=== PATIENT | male | born 1955 | race Hispanic/Latino ===

== ENCOUNTER 2016-10-31 21:02 | Inpatient (IN) | payer BC, OTHER ==
[2016-10-31 22:06] LABS: Basophils % (Auto) 0.8 % (0.0-1.8); Eosinophils % (Auto) 0.5 % (0.0-4.3); Hematocrit 46.9 % (35.5-45.6); Hemoglobin 15.7 gm/dl (11.8-15.2); Mean Corpuscular HGB Conc 33 % (32-34); Mean Corpuscular Hemoglobin 28 pg (28-32); Mean Corpuscular Volume 84 fl (84-94); Platelet Count 277 K/mm3 (140-440); Red Cell Distribution Width 13.4 % (13.2-15.2); White Blood Count 11.5 K/mm3 (4.5-11.0)
[2016-10-31 22:20] LABS: Anion Gap 18 mmol/L; Blood Urea Nitrogen 10 mg/dL (9-20); Calcium 9.7 mg/dL (8.4-10.2); Carbon Dioxide 26 mmol/L (22-30); Chloride 101.9 mmol/L (98-107); Glucose 103 mg/dL (75-100); Potassium 4.1 mmol/L (3.6-5.0); Sodium 142 mmol/L (137-145)
--- NOTE | 2016-11-01 06:31 | Emergency Department Report ---
ED General Adult HPI - General Chief complaint: Dyspnea/Respdistress Stated complaint: JOHN,LT JAW PAIN Time Seen by Provider: 11/01/16 06:16 Source: patient, RN notes reviewed Mode of arrival: Ambulatory Limitations: No Limitations - History of Present Illness Initial comments: This is a 61-year-old male. He is previously known to me. His primary care doctor is Dr. Weber. He reports a past medical history of COPD, but is not on home oxygen. He may have a history of hypertension. The patient presents to the ER complaining of chest pain. The chest pain started at 6 PM last night. It is sharp, located on the bilateral chest wall. It radiates to the left arm and back. It is associated with shortness of breath. The patient denies fevers and chills. He denies weakness production. He denies abdominal pain. He denies hematemesis or bright red blood per rectum. There is no leg pain. There is no leg swelling. No recent trips greater than 4 hours. No recent hospital admissions. The patient reports that he feels like he has pneumonia. He further reports that for the past 3 weeks he is on antibiotics for issues with his teeth. He reports multiple recent dental extractions( cannot recall the name of his dentist). He reports that he was initially on clindamycin, and then switched to Augmentin. He complains of persistent pain over the dental extraction sites. -: Gradual Location: mouth, chest Radiation: back Severity scale (0 -10): 7 Quality: aching Improves with: rest Worsens with: movement Associated Symptoms: chest pain - Related Data Home Medications Medication Instructions Recorded Confirmed Last Taken Amoxicillin [Amoxicillin TAB] 875 mg PO DAILY 11/01/16 11/01/16 10/31/16 Allergies Allergy/AdvReac Type Severity Reaction Status Date / Time clindamycin Allergy Rash Verified 10/31/16 21:26 ED Review of Systems ROS: Stated complaint: JOHN,LT JAW PAIN Other details as noted in HPI Constitutional: malaise Eyes: denies: vision change ENT: dental pain. denies: hearing loss Respiratory: shortness of breath Cardiovascular: chest pain Gastrointestinal: denies: abdominal pain, nausea, vomiting Genitourinary: as per HPI Musculoskeletal: as per HPI Skin: as per HPI Neurological: as per HPI Psychiatric: as per HPI ED Past Medical Hx - Past Medical History Previous Medical History?: No - Surgical History Additional Surgical History: R knee - Social History Smoking Status: Former Smoker Substance Use Type: None - Medications Home Medications: Home Medications Medication Instructions Recorded Confirmed Last Taken Type Amoxicillin [Amoxicillin TAB] 875 mg PO DAILY 11/01/16 11/01/16 10/31/16 History ED Physical Exam - General Limitations: No Limitations General appearance: alert, in no apparent distress - Head Head exam: Present: atraumatic, normocephalic - Eye Eye exam: Present: normal appearance, EOMI. Absent: nystagmus - ENT ENT exam: Present: normal exam, normal orophraynx, mucous membranes moist, normal external ear exam, other (status post multiple dental extractions. There is no stridor or trismus. There is no dysphonia. The patient is speaking in full sentences. There is no pain with lateral manipulation of the trachea.) - Neck Neck exam: Present: normal inspection, full ROM. Absent: tenderness, meningismus - Respiratory Respiratory exam: Present: normal lung sounds bilaterally. Absent: respiratory distress, wheezes, rales, rhonchi, stridor, chest wall tenderness, accessory muscle use, decreased breath sounds, prolonged expiratory - Cardiovascular Cardiovascular Exam: Present: regular rate, normal rhythm, normal heart sounds. Absent: bradycardia, tachycardia, irregular rhythm, systolic murmur, diastolic murmur, rubs, gallop - GI/Abdominal GI/Abdominal exam: Present: soft, normal bowel sounds. Absent: distended, tenderness, guarding, rebound, rigid, pulsatile mass - Rectal Rectal exam: Present: deferred - Extremities Exam Extremities exam: Present: normal inspection, full ROM, normal capillary refill. Absent: pedal edema, joint swelling, calf tenderness - Back Exam Back exam: Present: normal inspection, full ROM. Absent: tenderness, CVA tenderness (R), CVA tenderness (L), muscle spasm, paraspinal tenderness, vertebral tenderness - Neurological Exam Neurological exam: Present: alert, oriented X3, normal gait, other (Extraocular movements intact. Tongue midline. No facial droop. Facial sensation intact to light touch in the V1, V2, V3 distribution bilaterally. 5 and 5 strength in 4 extremities.. Sensation is intact to light touch in 4 extremities.). Absent : motor sensory deficit - Psychiatric Psychiatric exam: Present: normal affect, normal mood - Skin Skin exam: Present: warm, dry, intact, normal color. Absent: rash ED Course Vital Signs 10/31/16 11/01/16 11/01/16 21:22 03:05 04:40 Temperature 99.1 F Pulse Rate 86 71 74 Respiratory 22 20 17 Rate Blood Pressure 172/89 148/87 Blood Pressure 183/93 [Left] O2 Sat by Pulse 98 96 98 Oximetry 11/01/16 11/01/16 11/01/16 06:51 08:51 08:55 Temperature Pulse Rate 80 86 86 Respiratory 16 13 Rate Blood Pressure 175/95 Blood Pressure 176/83 [Left] O2 Sat by Pulse 96 96 Oximetry 11/01/16 11/01/16 11/01/16 09:01 09:05 09:11 Temperature Pulse Rate 89 88 85 Respiratory 14 14 15 Rate Blood Pressure 159/80 159/80 159/80 Blood Pressure [Left] O2 Sat by Pulse 94 94 96 Oximetry 11/01/16 11/01/16 11/01/16 09:54 10:00 11:00 Temperature Pulse Rate 91 H 79 82 Respiratory 14 17 16 Rate Blood Pressure 165/87 136/70 160/76 Blood Pressure [Left] O2 Sat by Pulse 93 94 92 Oximetry 11/01/16 11/01/16 11/01/16 12:00 13:00 14:00 Temperature Pulse Rate 80 82 79 Respiratory 23 16 16 Rate Blood Pressure 147/85 134/77 117/68 Blood Pressure [Left] O2 Sat by Pulse 92 95 95 Oximetry - Reevaluation(s) Reevaluation #1: 11/01/16 07:51 differential diagnosis: Costochondritis, pneumonia, acute coronary syndrome, pleural effusion, empyema, pulmonary embolus, pericarditis, myocarditis, chronic dentalgia Assessment and plan: 61-year-old male with 2 complaints. In terms of his dental complaints, he's been having pain since his extraction. Surgical site appears to be healing well. There is no obvious intraoral abscess or infection that I can detect. He can follow up with his dentist for this. Patient has not had a recent ACS risk stratification, age or than 50, some concerning elements of chest pain. He reported that he felt like he had pneumonia, however his x-ray was not consistent with pneumonia. We will obtain a CT scan of the chest to exclude small pneumonia versus pulmonary embolus. EKG morphological within normal limits 2. Troponin negative at this time. Reevaluation #2: 11/01/16 08:45 CT scan of the chest is nondiagnostic, there are no large central clot, but the distal vessels are not well evaluated. A nuclear medicine study will be ordered. Given clinical M Skylar, multiple symptoms, patient will be admitted to the hospital for further evaluation and management. L will defer to the inpatient team to follow up on a nuclear medicine study. The case is presented to the nurse practitioner working with Dr. John Matthew, and she accepts the patient to his service. ED Medical Decision Making - Lab Data Result diagrams: 10/31/16 21:49 10/31/16 21:49 Vital Signs 10/31/16 11/01/16 11/01/16 21:22 03:05 04:40 Temperature 99.1 F Pulse Rate 86 71 74 Respiratory 22 20 17 Rate Blood Pressure 172/89 148/87 Blood Pressure 183/93 [Left] O2 Sat by Pulse 98 96 98 Oximetry 11/01/16 06:51 Temperature Pulse Rate 80 Respiratory 16 Rate Blood Pressure Blood Pressure 176/83 [Left] O2 Sat by Pulse 96 Oximetry Lab Results 10/31/16 10/31/16 11/01/16 Range/Units 21:49 21:49 06:44 WBC 11.5 H (4.5-11.0) K/mm3 RBC 5.60 H (3.65-5.03) M/mm3 Hgb 15.7 H (11.8-15.2) gm/dl Hct 46.9 H (35.5-45.6) % MCV 84 (84-94) fl MCH 28 (28-32) pg MCHC 33 (32-34) % RDW 13.4 (13.2-15.2) % Plt Count 277 (140-440) K/mm3 Lymph % (Auto) 19.1 (13.4-35.0) % [place] % (Auto) 8.7 H (0.0-7.3) % Eos % (Auto) 0.5 (0.0-4.3) % Baso % (Auto) 0.8 (0.0-1.8) % Lymph # 2.2 (1.2-5.4) K/mm3 [place] # 1.0 H (0.0-0.8) K/mm3 Eos # 0.1 (0.0-0.4) K/mm3 Baso # 0.1 (0.0-0.1) K/mm3 Seg Neutrophils % 70.9 H (40.0-70.0) % Seg Neutrophils # 8.2 H (1.8-7.7) K/mm3 PT 13.8 (12.2-14.9) Sec. INR 1.07 (0.87-1.13) Sodium 142 (137-145) mmol/L Potassium 4.1 (3.6-5.0) mmol/L Chloride 101.9 (98-107) mmol/L Carbon Dioxide 26 (22-30) mmol/L Anion Gap 18 mmol/L BUN 10 (9-20) mg/dL Creatinine 0.8 (0.8-1.5) mg/dL Estimated GFR > 60 ml/min BUN/Creatinine Ratio 12.50 % Glucose 103 H (75-100) mg/dL Calcium 9.7 (8.4-10.2) mg/dL Troponin T < 0.010 (0.00-0.029) ng/mL 11/01/16 Range/Units 06:44 WBC (4.5-11.0) K/mm3 RBC (3.65-5.03) M/mm3 Hgb (11.8-15.2) gm/dl Hct (35.5-45.6) % MCV (84-94) fl MCH (28-32) pg MCHC (32-34) % RDW (13.2-15.2) % Plt Count (140-440) K/mm3 Lymph % (Auto) (13.4-35.0) % [place] % (Auto) (0.0-7.3) % Eos % (Auto) (0.0-4.3) % Baso % (Auto) (0.0-1.8) % Lymph # (1.2-5.4) K/mm3 [place] # (0.0-0.8) K/mm3 Eos # (0.0-0.4) K/mm3 Baso # (0.0-0.1) K/mm3 Seg Neutrophils % (40.0-70.0) % Seg Neutrophils # (1.8-7.7) K/mm3 PT (12.2-14.9) Sec. INR (0.87-1.13) Sodium (137-145) mmol/L Potassium (3.6-5.0) mmol/L Chloride (98-107) mmol/L Carbon Dioxide (22-30) mmol/L Anion Gap mmol/L BUN (9-20) mg/dL Creatinine (0.8-1.5) mg/dL Estimated GFR ml/min BUN/Creatinine Ratio % Glucose (75-100) mg/dL Calcium (8.4-10.2) mg/dL Troponin T < 0.010 (0.00-0.029) ng/mL - EKG Data -: EKG Interpreted by Me EKG shows normal: sinus rhythm, axis, intervals, QRS complexes, ST-T waves Rate: normal Critical care attestation.: If time is entered above; I have spent that time in minutes in the direct care of this critically ill patient, excluding procedure time. ED Disposition Clinical Impression: Chest pain Disposition: OP ADMIT IP TO THIS HOSP Is pt being admited?: Yes Does the pt Need Aspirin: Yes Condition: Good
--- NOTE | 2016-11-01 07:02 | XRay Report ---
FINAL REPORT EXAM: XR CHEST ROUTINE 2V HISTORY: Shortness of breath TECHNIQUE: Chest, PA and lateral PRIORS: None. FINDINGS: The heart size is normal. Mediastinal contours are normal. Pulmonary vasculature is not congested. The lungs are clear. Slight blunting of the right costophrenic angle seen which may reflect minimal pleural fluid versus pleural thickening. There is no evidence of pneumothorax. IMPRESSION: Slight blunting of right costophrenic angle seen which could reflect some pleural thickening although minimal pleural fluid not excluded. No other evidence of acute abnormality.
[2016-11-01 07:09] LABS: INR 1.07 (0.87-1.13)
[2016-11-01] MEDS ORDERED: NACL ONE (07:14)
[2016-11-01] MEDS ORDERED: BABY ASPIRIN PO ONE (08:46)
--- NOTE | 2016-11-01 08:55 | Cat Scan Report ---
CTA CHEST INDICATION: Chest pain, shortness of breath. COPD. COMPARISON: None similar. FINDINGS: Chest CTA performed following intravenous administration of 100 cc of Omnipaque 350. Rotational MIP's also obtained. Normal heart size. No effusions or size significant adenopathy. Patent central airway. Old healed granulomatous disease with few right hilar calcifications measuring up to 1.2 cm noted. Few coronary and mild aortic atherosclerotic calcifications. No aortic aneurysm or dissection. Pulmonary arterial opacification though technically suboptimal. No large central main or right and left pulmonary artery branch filling defect though suspected with further distal branch opacification evaluation suboptimal. Normal thyroid. Mild COPD changes most evident in the upper lobes. Bibasilar scarring, right greater than left. A 7 mm right lung base calcified granuloma posteriorly also noted. No acute abnormality in the imaged upper abdomen, though an approximately 1.2 cm hypodensity just medial to the IVC may lie in the caudate lobe as on axial image 112, series 3, possibly a cyst. Nonspecific caudate lobe prominence as well. Few small rodolfo hepatis lymph nodes measure up to 1.2 cm, axial image 127 as well. Questionable tiny recannulized paraumbilical vein. Approximately 1 cm left upper renal cortical hypodensity/cyst medially may be partially imaged. Mild multilevel thoracic spine degenerative changes/spurring. CONCLUSION: 1. Technically suboptimal exam for pulmonary embolism, though no definite large central filling defect suspected, to the extent assessed, as described. 2. Various other findings, including COPD, old healed granulomatous disease, right basilar scarring and questionable subtle cirrhosis, amongst others, as above. Please correlate. Thank you for the opportunity to participate in this patient's care.
--- NOTE | 2016-11-01 09:09 | Admit Criteria Form ---
Admission Criteria Documentation: CARDIOLOGY GRG Clinical Indications for Admission to Inpatient Care ( Place 'X' for any and all applicable criteria): Hospital admission is needed for appropriate care of the patient because of ANY ONE of the following (1): [ ] I. Hemodynamic instability as indicated by ALL of the following (1)(2)(3) (4)(5) [ ]a) Vital signs or other findings not as expected for chronic patient condition or baseline [ ]b) Instability indicated by ANY ONE of the following: [ ]i) Hypotension [ ]ii) Symptomatic Tachycardia unresponsive to treatment ( e.g., analgesia, fluids, sedation as indicated) [ ]iii) Inadequate perfusion indicated by ANY ONE of the following: [ ] 1) Lactic acidosis (> 2 mmol/L) [ ] 2) New abnormal capillary refill (> 3 seconds) [ ] 3) Reduced urine output [ ] 4) New altered mental status [ ]iv) Orthostatic vital sign changes unresponsive to treatment (e.g., fluids) [ ]v) IV inotropic or vasopressor medication required to maintain adequate blood pressure or perfusion [ ] II. Severe heart failure as indicated by ANY ONE of the following(17)(18) [ ]a) Respiratory distress [ ]b) Hypotension [ ]c) Anasarca (refractory to outpatient therapy) [ ]d) Cardiac arrhythmias of immediate concern [ ]e) Myocardial ischemia [ ] III. Cardiac arrhythmias or findings of immediate concern indicated by ANY ONE of the following (19)(20): [ ] a) Heart rhythms that are inherently dangerous or unstable indicated by ANY ONE of the following (21)(22)(23): [ ] i) Resuscitated ventricular fibrillation or cardiac arrest [ ] ii) Ventricular escape rhythm [ ] iii) Sustained ventricular tachycardia (30 seconds or more of ventricular rhythm at greater than 100 beats per minute) [ ] iv) Nonsustained ventricular tachycardia and ANY ONE of the following: [ ] 1) Suspected cardiac ischemia as cause or consequence of ventricular tachycardia [ ] 2) In setting of acute myocarditis [ ] b) Unstable cardiac conduction defects indicated by ANY ONE of the following(23)(24)(25) [ ] i) Type II second-degree atrioventricular block [ ]ii) Third-degree atrioventricular block [ ]iii) New-onset left bundle branch block with suspected myocardial ischemia [ ]c) Any heart rhythm and ANY ONE of the following (21)(22)(26)(27) (28) [ ] i) Continuous long-term ECG monitoring needed (e.g., initiation of drug requiring monitoring for more than 24 hours) [ ] ii) Patient has automatic implanted cardioverter defibrillator that is repeatedly firing, malfunctioning, or in need of immediate adjustment of settings beyond the scope of ambulatory or observation care [ ]d) Heart rhythms of concern due to ANY ONE of the following: [ ] i) Hypotension [ ] ii) Respiratory distress [ ] iii) Association with other significant symptoms (e.g., bradycardia with syncope or ongoing dizziness, supraventricular tachycardia with chest pain (14)(15)(17) [ ] IV. Monitoring for cardiac contusion beyond the scope of observation care needed [A](30)(31)(32) [ ] V. Surgical or device complication (e.g., valve replacement complication , pacemaker dysfunction) (35)(41)(44)(45)(46) [ ] . Inpatient palliative care needed. [B](49) Also use Inpatient Palliative Care Criteria [ ] VII. Nonbacterial thrombotic (marantic) endocarditis (36)(43)(47)(48) [X] VIII. Cardiology condition, symptom, or finding for which emergency and observation care has failed or are not considered appropriate. [ ] IX. Acute valvular disease requiring inpatient as indicated by ANY ONE of the following (41) [ ]a) Acute valvular regurgitation (42) [ ]b) Noninfectious valvulitis (43) [ ]c) Obstructive valve thrombosis [ ]d) Paravalvular leak [ ]e) Other significant valvular disorder remaining after emergency or observation level of care (as appropriate) [ ]X. Pericardial disease requiring inpatient treatment as indicated by ANY ONE of the following (33)(34)(35)(36)(37) [ ]a) Suspected tamponade (38)(39)(40) [ ]b) Hemopericardium [ ]c) Other significant pericardial disorder remaining after emergency or observation level of care (as appropriate) [ ] XI. Cardiac ischemia beyond scope of emergency and observation care. [ ] XII. Hypertension requiring inpatient treatment as indicated by ANY ONE of the following (6)(7)(8) [ ]a) SBP greater than 220 mm Hg or DBP greater than 120 mmHg despite treatment [ ]b) SBP greater than 140 mm Hg or DBP greater than 100 mm Hg with evidence of acute end organ damage as indicated by ANY ONE of the following [ ] i) Altered mental status [ ] ii) Acute renal failure as indicated by new onset of ANY ONE of the following (9)(10)(11)(12)(13) [ ]1) 3-fold rise in serum creatinine from baseline [ ]2) Serum creatinine greater than 4 mg/dL ( 354 micromoles/L) with acute rise greater than 0.5 mg/dL (44.2 micromoles/L) [ ]3) Reduction of more than 75% in estimated glomerular filtration rate from baseline [ ]4) Estimated glomerular filtration rate less than 35 mL/min/1.73m2 (0.59 mL/sec/1.73m2) in child up to 18 years of age [ ]5) Cessation of urine output indicated by ALL of the following [ ]A. Adequate volume status [ ]B. Inadequate urine output as indicated by ANY ONE of the following [ ]a. Urine output less than 0.3 mL/kg/hr for 24 hours [ ]b. Anuria (urine output less than 0.1 mL/kg/hr) for 12 hours [ ] iii) Aortic dissection [ ] iv) Myocardial Ischemia [ ] v) Left ventricular heart failure [ ]vi) Retinal Hemorrhage [ ]vii) Other significant finding [ ]c) Hypertension in child requiring inpatient treatment as indicated by ALL of the following(14)(15)(16) [ ] i) Outpatient treatment not effective, not available, or not appropriate [ ]ii) SBP or DBP greater than 95th percentile for age [ ]iii) Evidence of acute end organ damage as indicated by ANY ONE of the following [ ]1) Altered mental status [ ]2) Acute renal failure as indicated by new onset of ANY ONE of the following(9)(10)(11)(12)(13) [ ]A. 3-fold rise in serum creatinine from baseline [ ]B. Serum creatinine greater than 4 mg/dL (354 micromoles/L) with acute rise greater than 0.5 mg/dL (44.2 micromoles/L) [ ]C. Reduction of more than 75% in estimated glomerular filtration rate from baseline [ ]D. Estimated glomerular filtration rate less than 35 mL/min/1.73m2 (0.59 mL/sec/1.73m2) in child up to 18 years of age [ ]E. Cessation of urine output indicated by ALL of the following [ ]a. Adequate volume status [ ]b. Inadequate urine output as indicated by ANY ONE of the following [ ]i) Urine output less than 0.3 mL/kg/hr for 24 hours [ ]ii) Anuria ( urine output less than 0.1 mL/kg/hr) for 12 hours [ ]3) Severe headache [ ]4) Visual disturbance [ ]5) Retinal hemorrhage [ ]6) Other significant finding [ ]XIII. Complications of transplanted heart indicated by ANY ONE of the following(61): [ ]a) Acute graft rejection requiring inpatient management (eg, intravenous immunosuppression)(62)(63) [ ]b) Acute graft heart failure indicated by ANY ONE of the following(64): [ ]i) Hemodynamic instability [ ]ii) Cardiac arrhythmias of immediate concern [ ]iii) Pulmonary edema that is very severe (eg, mechanical ventilation needed, imminent or likely, need for 100% oxygen to keep oxygen saturation above 90%) [ ]iv) Pulmonary edema that is persistent as indicated by ALL of the following: [ ]1) New need for oxygen therapy to keep oxygen saturation above 90% (or increased FiO2 need from baseline) [ ]2) Has not improved sufficiently with emergency department or observation care IV diuretics or other heart failure treatments[E] [ ]v) Altered mental status that is severe or persistent [ ]vi) Increased creatinine (new on laboratory test) with reduction of more than 50% in estimated glomerular filtration rate from baseline [ ]vii) Progressively (ongoing) rising creatinine (known from past laboratory test) with reduction of more than 25% in estimated glomerular filtration rate from baseline [ ]viii) Acute renal failure [ ]ix) Acute peripheral ischemia (eg, examination shows pulseless, cool, mottled, or cyanotic extremity) [ ]x) Pulmonary artery catheter monitoring needed [ ]xi) Other sign or symptom of heart failure requiring inpatient treatment (ie, too severe or not responsive to outpatient and observation care treatment) [ ]c) Infection requiring inpatient management (eg, Hemodynamic instability, need for intravenous antimicrobial treatment)(66)(67)(68)(69)(70) [ ]d) Cardiac allograft vasculopathy requiring inpatient management ( eg evidence of cardiac ischemia)(71) [ ]e) Other complication of transplanted heart (eg, stroke, severe pulmonary hypertension, severe valvular dysfunction) requiring inpatient management(72) The original [facility] [employer] content created by [facility] has been revised. The portions of the content which have been revised are identified through the use of italic text or in bold, and [facility] has neither reviewed nor approved the modified material. All other unmodified content is copyright [facility] [employer]. Please see references footnoted in the original [facility] [employer] edition 2016 Admission Criteria Met: Yes
[2016-11-01] MEDS ORDERED: TYLENOL PO PRN (09:36)
[2016-11-01] MEDS ORDERED: MORPHINE IV PRN (09:36)
[2016-11-01] MEDS ORDERED: ZOFRAN IV PRN (09:36)
[2016-11-01] MEDS ORDERED: MILK OF MAGNESIA PO PRN (09:36)
[2016-11-01] MEDS ORDERED: DULCOLAX PR PRN (09:36)
[2016-11-01] MEDS ORDERED: NITROSTAT SL PRN (09:42)
[2016-11-01] MEDS ORDERED: SODIUM CHLORIDE FLUSH SYRINGE 10 ML IV PRN (09:42)
--- NOTE | 2016-11-01 09:51 | History and Physical Report ---
History of Present Illness Date of examination: 11/01/16 Date of admission: 11/01/2016 Chief complaint: chest pain, shortness of breath History of present illness: Patient is a 61 years-old gentleman with a history of COPD and hypertension who presents with complaining of chest pain. He states that the pain began last night and consisted of a sharp pain that lasted around 30 seconds, followed by a dull pain that would last around 2 minutes. The pain was located over bilateral anterior chest wall. The character pain began in the Midsternal area and radiated up to his back. His discomfort was accompanied by shortness of breath, but associated symptoms no sweating, nausea, or vomiting. The chest pain was aggravated by coughing and taking deep breaths.He says that coughing and breathing makes it worst and hot temperatures will help relieve those symptoms. The pain has been a constant pain since it started yesterday evening. At first, he felt a sharp pain that was 7/10 but eventually it became more dull pain and is currently 5/10.He has had no fevers, chills, or night sweats. He has no allergies, seasonal or otherwise, other than hx of COPD. He reports feeling like he is wheezing, but no dyspnea at rest (as long as he is lying down ), no orthopnea, and no paroxysmal nocturnal dyspnea. No hx of recurrent pneumonia. He has no sick contact, TB exposure has not traveled recently or been around those who have. He has about a 32 pack year history with tobacco and stopped smoking five years ago. Patient also stated that for the past 3 weeks he is on clindamycin and Augmentin for infected tooth. Patient believed that he has pneumonia because he has the same symptoms that he had 3 years ago when he was diagnosed with pneumonia. Past History Past Medical History: COPD, hypertension Past Surgical History: No surgical history Social history: no significant social history, , lives with family Family history: CAD Medications and Allergies Allergies Allergy/AdvReac Type Severity Reaction Status Date / Time clindamycin Allergy Rash Verified 10/31/16 21:26 Home Medications Medication Instructions Recorded Confirmed Last Taken Type Amoxicillin [Amoxicillin TAB] 875 mg PO DAILY 11/01/16 11/01/16 10/31/16 History Budesoni/Formoterol 80-4.5(Nf) 1 puff IH BID 11/01/16 11/01/16 1 Day Ago History [Symbicort 80-4.5 (Nf)] Active Meds: Active Medications Acetaminophen (Tylenol) 650 mg PO Q4H PRN PRN Reason: Pain MILD(1-3)/Fever >100.5/BOYKIN Aspirin (Aspirin) 325 mg PO QDAY GEOVANI Bisacodyl (Dulcolax) 10 mg SD QDAY PRN PRN Reason: Constipation unrelieved by MOM Dextrose/Sodium Chloride (D5ns) 1,000 mls @ 75 mls/hr IV DIRECT GEOVANI Magnesium Hydroxide (Milk Of Magnesia) 30 ml PO Q4H PRN PRN Reason: Constipation Morphine Sulfate (Morphine) 2 mg IV Q4H PRN PRN Reason: Pain, Moderate (4-6) Nitroglycerin (Nitrostat) 0.4 mg SL Q5M PRN PRN Reason: Chest Pain Ondansetron HCl (Zofran) 4 mg IV Q8H PRN PRN Reason: N/V unrelieved by Reglan Sodium Chloride (Sodium Chloride Flush Syringe 10 Ml) 10 ml IV PRN PRN PRN Reason: LINE FLUSH Review of Systems Constitutional: no weight loss, no weight gain, no fever, no chills Ears, nose, mouth and throat: no ear pain, no ear discharge, no tinnitis Cardiovascular: chest pain, shortness of breath, no orthopnea, no dyspnea on exertion, no paroxysmal nocturnal dyspnea Respiratory: cough, shortness of breath, congestion Gastrointestinal: no abdominal pain, no nausea, no vomiting Genitourinary Male: no dysuria, no hematuria Musculoskeletal: no neck stiffness, no neck pain, no shooting arm pain Integumentary: no deferred, no rash, no pruritis, no redness, no sores Neurological: no head injury, no transient paralysis, no paralysis Psychiatric: no anxiety, no memory loss, no change in sleep habits Endocrine: no cold intolerance, no heat intolerance, no polyphagia, no excessive thirst Hematologic/Lymphatic: no easy bruising, no easy bleeding Allergic/Immunologic: no urticaria, no allergic rhinitis Exam - Constitutional Vitals: Temp Pulse Resp BP Pulse Ox 99.1 F 85 15 159/80 96 10/31/16 21:22 11/01/16 09:11 11/01/16 09:11 11/01/16 09:11 11/01/16 09:11 General appearance: Present: mild distress - EENT Eyes: Present: PERRL, EOM intact ENT: hearing intact, clear oral mucosa, dentition normal - Neck Neck: Present: supple, normal ROM - Respiratory Respiratory effort: normal Respiratory: bilateral: diminished, rales - Cardiovascular Heart rate: 79 Rhythm: regular Heart Sounds: Present: S1 & S2. Absent: rub, click - Extremities Extremities: pulses symmetrical, No edema Peripheral Pulses: within normal limits - Abdominal General gastrointestinal: Present: soft, non-tender Male genitourinary: Present: deferred - Rectal Rectal Exam: deferred - Integumentary Integumentary: Present: clear, warm, dry - Musculoskeletal Musculoskeletal: gait normal, strength equal bilaterally - Psychiatric Psychiatric: appropriate mood/affect, intact judgment & insight - Neurologic Neurologic: CNII-XII intact, moves all extremities Results - Labs CBC & Chem 7: 10/31/16 21:49 10/31/16 21:49 Labs: Laboratory Last Values WBC 11.5 K/mm3 (4.5-11.0) H 10/31/16 21:49 RBC 5.60 M/mm3 (3.65-5.03) H 10/31/16 21:49 Hgb 15.7 gm/dl (11.8-15.2) H 10/31/16 21:49 Hct 46.9 % (35.5-45.6) H 10/31/16 21:49 MCV 84 fl (84-94) 10/31/16 21:49 MCH 28 pg (28-32) 10/31/16 21:49 MCHC 33 % (32-34) 10/31/16 21:49 RDW 13.4 % (13.2-15.2) 10/31/16 21:49 Plt Count 277 K/mm3 (140-440) 10/31/16 21:49 Lymph % (Auto) 19.1 % (13.4-35.0) 10/31/16 21:49 [place]ila % (Auto) 8.7 % (0.0-7.3) H 10/31/16 21:49 Eos % (Auto) 0.5 % (0.0-4.3) 10/31/16 21:49 Baso % (Auto) 0.8 % (0.0-1.8) 10/31/16 21:49 Lymph # 2.2 K/mm3 (1.2-5.4) 10/31/16 21:49 [place]ila # 1.0 K/mm3 (0.0-0.8) H 10/31/16 21:49 Eos # 0.1 K/mm3 (0.0-0.4) 10/31/16 21:49 Baso # 0.1 K/mm3 (0.0-0.1) 10/31/16 21:49 Seg Neutrophils % 70.9 % (40.0-70.0) H 10/31/16 21:49 Seg Neutrophils # 8.2 K/mm3 (1.8-7.7) H 10/31/16 21:49 PT 13.8 Sec. (12.2-14.9) 11/01/16 06:44 INR 1.07 (0.87-1.13) 11/01/16 06:44 Sodium 142 mmol/L (137-145) 10/31/16 21:49 Potassium 4.1 mmol/L (3.6-5.0) 10/31/16 21:49 Chloride 101.9 mmol/L (98-107) 10/31/16 21:49 Carbon Dioxide 26 mmol/L (22-30) 10/31/16 21:49 Anion Gap 18 mmol/L 10/31/16 21:49 BUN 10 mg/dL (9-20) 10/31/16 21:49 Creatinine 0.8 mg/dL (0.8-1.5) 10/31/16 21:49 Estimated GFR > 60 ml/min 10/31/16 21:49 BUN/Creatinine Ratio 12.50 % 10/31/16 21:49 Glucose 103 mg/dL (75-100) H 10/31/16 21:49 Calcium 9.7 mg/dL (8.4-10.2) 10/31/16 21:49 Troponin T < 0.010 ng/mL (0.00-0.029) 11/01/16 06:44 Assessment and Plan - Patient Problems (1) Chest pain Current Visit: Yes Status: Acute Qualifiers: Chest pain type: C Ischemic chest pain type: I Plan to address problem: Patient will admit to Telemetry for continuous cardiac monitoring We will do serial cardiac enzymes and follow cardiac enzymes troponin Echocardiogram and a stress test ordered Cardiology consulted for further evaluation (2) PNA (pneumonia) Current Visit: Yes Status: Acute Qualifiers: Pneumonia type: P Aspiration pneumonia type: A Laterality: L Lung location: L Plan to address problem: Patient had blood cultures drawn as he was started on Levaquin We will initiate empiric treatment antibiotic We will repeat the CBC Repeat chest x-ray (3) COPD exacerbation Current Visit: Yes Status: Acute Plan to address problem: We initiate IV steroids Solu-Medrol 40 mg every 6 hours Duoneb Q6hrs ordered Oxygen as needed (4) Venous thromboembolism (VTE) prophylaxis provided within 24 hours of arrival Current Visit: Yes Status: Acute Plan to address problem: Lovenox
[2016-11-01] MEDS: ASPIRIN PO SCH (11:33)
--- NOTE | 2016-11-01 11:33 | Nuclear Medicine Report ---
VENTILATION PERFUSION SCAN INDICATION: Shortness of breath, chest pain. COMPARISON: None similar. FINDINGS: VQ scan performed in anterior, posterior, lateral and oblique projections. 5 mCi of technetium 99m MAA was used for the perfusion assessment while 15 millicuries of Xenon 133 was utilized for the ventilation portion of the study. Ventilation images demonstrate radiotracer retention within the lungs, left more than right. The perfusion is more heterogeneous than the ventilation with large areas of hypoperfusion/non-perfusion in the mid lung zones, though not strictly lobar. Available chest radiograph from 9:36 PM last night demonstrates no acute disease with right basilar scarring. CONCLUSION: Intermediate probability exam per PIOPED criteria in this patient with underlying COPD/air trapping noted with heterogeneous perfusion, as described. An interval PE protocol CT technically suboptimal, though no large central pulmonary embolism suspected with above V/Q appearance somewhat discrepant and possibly related to parenchymal disease. However, repeat chest CTA may provide better pulmonary arterial opacification and assessment, if warranted and renal function allows. Thank you for the opportunity to participate in this patient's care.
[2016-11-01 14:39] LABS: Creatine Kinase 65 units/L (55-170); Creatine Kinase MB 1.1 ng/mL (0.0-4.0)
[2016-11-01] MEDS: LEVAQUIN 750MG/150ML 750 MG/150 ML BAG IV SCH (15:45)
[2016-11-01] MEDS: D5NS 1,000 ML IV SCH (15:45)
--- NOTE | 2016-11-01 16:15 | Consultation ---
History of Present Illness Consult date: 11/01/16 Consult reason: chest pain History of present illness: 61yr old male that reports a history of COPD not on home oxygen, Hypertension that is diet controlled who presents to the ED with complaints of chest pain and shortness of breath. Patient reports he has had multiple teeth extractions and has been on antibiotics for 3 weeks post extractions. On yesterday, patient reports he initially had left mouth pain but the pain travel to his left chest associated with shortness of breath. He reports his last cardiac workup was 3 years ago where he had a stress thallium that he was told is normal. His ECG is benign, a normal sinus rhythm. Set of cardiac enzymes are negative. Patient has been admitted for rule out acute coronary syndrome and is planned for a stress thallium ordered by the medical team. Medications and Allergies Allergies Allergy/AdvReac Type Severity Reaction Status Date / Time clindamycin Allergy Rash Verified 10/31/16 21:26 Home Medications Medication Instructions Recorded Confirmed Last Taken Type Amoxicillin [Amoxicillin TAB] 875 mg PO DAILY 11/01/16 11/01/16 10/31/16 History Budesoni/Formoterol 80-4.5(Nf) 1 puff IH BID 11/01/16 11/01/16 1 Day Ago History [Symbicort 80-4.5 (Nf)] Active Meds: Active Medications Acetaminophen (Tylenol) 650 mg PO Q4H PRN PRN Reason: Pain MILD(1-3)/Fever >100.5/BOYKIN Last Admin: 11/01/16 15:10 Dose: 650 mg Aspirin (Aspirin) 325 mg PO QDAY GEOVANI Last Admin: 11/01/16 11:33 Dose: 325 mg Bisacodyl (Dulcolax) 10 mg [place] QDAY PRN PRN Reason: Constipation unrelieved by MOM Dextrose/Sodium Chloride (D5ns) 1,000 mls @ 75 mls/hr IV DIRECT GEOVANI Last Admin: 11/01/16 15:45 Dose: 75 mls/hr Levofloxacin/Dextrose (Levaquin 750mg/150ml) 750 mg in 150 mls @ 100 mls/hr IV Q24H GEOVANI PRN Reason: Protocol Last Admin: 11/01/16 15:45 Dose: 100 mls/hr Magnesium Hydroxide (Milk Of Magnesia) 30 ml PO Q4H PRN PRN Reason: Constipation Methylprednisolone Sodium Succinate (Solu-Medrol) 40 mg IV Q6HR GEOVANI Morphine Sulfate (Morphine) 2 mg IV Q4H PRN PRN Reason: Pain, Moderate (4-6) Nitroglycerin (Nitrostat) 0.4 mg SL Q5M PRN PRN Reason: Chest Pain Ondansetron HCl (Zofran) 4 mg IV Q8H PRN PRN Reason: N/V unrelieved by Reglan Pneumococcal Polyvalent Vaccine (Pneumovax 23) 0.5 ml IM .ONCE ONE Stop: 11/02/16 12:01 Sodium Chloride (Sodium Chloride Flush Syringe 10 Ml) 10 ml IV PRN PRN PRN Reason: LINE FLUSH Physical Examination Vital Signs Temp Pulse Resp BP Pulse Ox 99.1 F 86 22 172/89 98 10/31/16 21:22 10/31/16 21:22 10/31/16 21:22 10/31/16 21:22 10/31/16 21:22 General appearance: no acute distress Cardiac: Positive: Reg Rate and Rhythm Lungs: Positive: Decreased Breath Sounds Neuro: Positive: Grossly Intact Results 10/31/16 21:49 10/31/16 21:49 Cardiac Enzymes 11/01/16 Range/Units 13:57 CK-MB (CK-2) 1.1 (0.0-4.0) ng/mL Assessment and Plan Chest pain intermediate probability exam for PE d/t underlying COPD no acute cardiopulmonary process on chest x-ray. Hx of COPD Recent teeth extractions
[2016-11-01 17:06] LABS: Creatine Kinase 65 units/L (55-170)
[2016-11-01 17:34] LABS: Creatine Kinase MB < 1.0 ng/mL (0.0-4.0)
[2016-11-01] MEDS: LOVENOX SUB-Q SCH (22:02)
[2016-11-02] MEDS: D5NS 1,000 ML IV SCH ×2 (05:15→20:06)
[2016-11-02 09:10] LABS: Hematocrit 46.8 % (35.5-45.6); Hemoglobin 15.6 gm/dl (11.8-15.2); Mean Corpuscular HGB Conc 33 % (32-34); Mean Corpuscular Hemoglobin 28 pg (28-32); Mean Corpuscular Volume 85 fl (84-94); Platelet Count 292 K/mm3 (140-440); Red Blood Count 5.53 M/mm3 (3.65-5.03); Red Cell Distribution Width 13.4 % (13.2-15.2); White Blood Count 12.8 K/mm3 (4.5-11.0)
[2016-11-02 09:11] LABS: Basophils % (Auto) 0.1 % (0.0-1.8)
[2016-11-02 09:30] LABS: Anion Gap 17 mmol/L; BUN/Creatinine Ratio 18.57; Blood Urea Nitrogen 13 mg/dL (9-20); Calcium 9.2 mg/dL (8.4-10.2); Carbon Dioxide 26 mmol/L (22-30); Chloride 104.2 mmol/L (98-107); Glucose 144 mg/dL (75-100); Potassium 4.2 mmol/L (3.6-5.0); Sodium 143 mmol/L (137-145)
--- NOTE | 2016-11-02 09:45 | Progress Note ---
Assessment and Plan Shortness of breath intermediate probability exam for PE d/t underlying COPD no acute cardiopulmonary process on chest x-ray. Hx of COPD Recent teeth extractions Plan: Echocardiogram for cardiac evaluation. In the absence of chest pain or angina, no stress test is indicated at the current time. Subjective Date of service: 11/02/16 Interval history: No events on telemetry overnight. Objective Vital Signs Temp Pulse Resp BP BP Pulse Ox 11/02/16 09:10 98.4 F 78 18 143/82 11/02/16 04:00 98.2 F 86 18 117/57 98 11/02/16 00:00 98.5 F 96 H 18 123/74 98 11/01/16 20:30 86 11/01/16 19:55 98.6 F 86 18 133/61 98 11/01/16 16:08 96 11/01/16 15:26 98.8 F 78 20 139/74 95 11/01/16 14:46 79 11/01/16 14:00 79 16 117/68 95 11/01/16 13:00 82 16 134/77 95 11/01/16 12:00 80 23 147/85 92 11/01/16 11:00 82 16 160/76 92 11/01/16 10:00 79 17 136/70 94 11/01/16 09:54 91 H 14 165/87 93 - Physical Examination General: No Apparent Distress Cardiac: Positive: Reg Rate and Rhythm Neuro: Positive: Grossly Intact - Labs and Meds Cardiac Enzymes 11/01/16 11/01/16 Range/Units 13:57 15:59 CK-MB (CK-2) 1.1 < 1.0 (0.0-4.0) ng/mL CBC 11/02/16 Range/Units 08:13 WBC 12.8 H (4.5-11.0) K/mm3 RBC 5.53 H (3.65-5.03) M/mm3 Hgb 15.6 H (11.8-15.2) gm/dl Hct 46.8 H (35.5-45.6) % Plt Count 292 (140-440) K/mm3 Lymph # 1.4 (1.2-5.4) K/mm3 Boyd # 0.2 (0.0-0.8) K/mm3 Eos # 0.0 (0.0-0.4) K/mm3 Baso # 0.0 (0.0-0.1) K/mm3 Comprehensive Metabolic Panel 11/02/16 Range/Units 08:13 Sodium 143 (137-145) mmol/L Potassium 4.2 (3.6-5.0) mmol/L Chloride 104.2 (98-107) mmol/L Carbon Dioxide 26 (22-30) mmol/L BUN 13 (9-20) mg/dL Creatinine 0.7 L (0.8-1.5) mg/dL Glucose 144 H (75-100) mg/dL Calcium 9.2 (8.4-10.2) mg/dL
[2016-11-02] MEDS ORDERED: PNEUMOVAX 23 IM ONE (12:00)
[2016-11-02] MEDS ORDERED: ULTRAM PO PRN (13:28)
[2016-11-02] MEDS: ASPIRIN PO SCH (14:16)
[2016-11-02] MEDS: LEVAQUIN 750MG/150ML 750 MG/150 ML BAG IV SCH (14:17)
--- NOTE | 2016-11-02 15:48 | Progress Note ---
Assessment and Plan Assessment and plan: Chest pain Pneumonia COPD exacerbation Infected tooth - Serial cardiac enzymes were done, EKG showed no acute myocardial infarction - VQ scan was intermediate risk for metoprolol to PE and CTA was done which was negative for PE - Patient is on IV Levaquin - Pain control - Breathing treatment, oxygen support, steroid - Cardiology consult appreciated, echo is pending DVT prophylaxis Chemical Disposition Continue inpatient care. History Interval history: Patient was seen and evaluated at the bedside, patient is breathing well, he was not in respiratory distress. Patient was complaining of headache. Hospitalist Physical - Physical exam Narrative exam: Not in cardiopulmonary distress. The patient appeared well nourished and normally developed. Vital signs as documented. Head exam is unremarkable. No scleral icterus . Neck is without jugular venous distension, thyromegaly, or carotid bruits. Lungs are clear to auscultation. Cardiac exam reveals regular rate and Rhythm. First and second heart sounds normal. No murmurs, rubs or gallops. Abdominal exam reveals normal bowel sounds, no masses, no organomegaly and no aortic enlargement. Extremities are nonedematous and both femoral and pedal pulses are normal. DYE AND CHEMICAL COORDINATOR: Alert and oriented 3. No focal weakness. - Constitutional Vitals: Temp Pulse Resp BP Pulse Ox 98.4 F 78 18 143/82 98 11/02/16 09:10 11/02/16 09:10 11/02/16 09:10 11/02/16 09:10 11/02/16 04:00 General appearance: Present: mild distress Results - Labs CBC & Chem 7: 11/02/16 08:13 11/02/16 08:13 Labs: Laboratory Last Values WBC 12.8 K/mm3 (4.5-11.0) H 11/02/16 08:13 RBC 5.53 M/mm3 (3.65-5.03) H 11/02/16 08:13 Hgb 15.6 gm/dl (11.8-15.2) H 11/02/16 08:13 Hct 46.8 % (35.5-45.6) H 11/02/16 08:13 MCV 85 fl (84-94) 11/02/16 08:13 MCH 28 pg (28-32) 11/02/16 08:13 MCHC 33 % (32-34) 11/02/16 08:13 RDW 13.4 % (13.2-15.2) 11/02/16 08:13 Plt Count 292 K/mm3 (140-440) 11/02/16 08:13 Lymph % (Auto) 10.8 % (13.4-35.0) L 11/02/16 08:13 [place] % (Auto) 1.8 % (0.0-7.3) 11/02/16 08:13 Eos % (Auto) 0.0 % (0.0-4.3) 11/02/16 08:13 Baso % (Auto) 0.1 % (0.0-1.8) 11/02/16 08:13 Lymph # 1.4 K/mm3 (1.2-5.4) 11/02/16 08:13 [place] # 0.2 K/mm3 (0.0-0.8) 11/02/16 08:13 Eos # 0.0 K/mm3 (0.0-0.4) 11/02/16 08:13 Baso # 0.0 K/mm3 (0.0-0.1) 11/02/16 08:13 Seg Neutrophils % 87.3 % (40.0-70.0) H 11/02/16 08:13 Seg Neutrophils # 11.2 K/mm3 (1.8-7.7) H 11/02/16 08:13 PT 13.8 Sec. (12.2-14.9) 11/01/16 06:44 INR 1.07 (0.87-1.13) 11/01/16 06:44 D-Dimer < 135.00 ng/mlDDU (0-234) 11/01/16 13:57 Sodium 143 mmol/L (137-145) 11/02/16 08:13 Potassium 4.2 mmol/L (3.6-5.0) 11/02/16 08:13 Chloride 104.2 mmol/L (98-107) 11/02/16 08:13 Carbon Dioxide 26 mmol/L (22-30) 11/02/16 08:13 Anion Gap 17 mmol/L 11/02/16 08:13 BUN 13 mg/dL (9-20) 11/02/16 08:13 Creatinine 0.7 mg/dL (0.8-1.5) L 11/02/16 08:13 Estimated GFR > 60 ml/min 11/02/16 08:13 BUN/Creatinine Ratio 18.57 % 11/02/16 08:13 Glucose 144 mg/dL (75-100) H 11/02/16 08:13 Calcium 9.2 mg/dL (8.4-10.2) 11/02/16 08:13 Total Creatine Kinase 65 units/L (55-170) 11/01/16 15:59 CK-MB (CK-2) < 1.0 ng/mL (0.0-4.0) 11/01/16 15:59 CK-MB (CK-2) Rel Index 1.5 (0-4) 11/01/16 15:59 Troponin T < 0.010 ng/mL (0.00-0.029) 11/01/16 15:59
[2016-11-02] MEDS: LOVENOX SUB-Q SCH (22:20)
[2016-11-03 05:47] LABS: Basophils % (Auto) 0.3 % (0.0-1.8); Eosinophils % (Auto) 0.3 % (0.0-4.3); Hemoglobin 14.7 gm/dl (11.8-15.2); Mean Corpuscular HGB Conc 33 % (32-34); Mean Corpuscular Hemoglobin 28 pg (28-32); Mean Corpuscular Volume 85 fl (84-94); Platelet Count 248 K/mm3 (140-440); Red Blood Count 5.17 M/mm3 (3.65-5.03); Red Cell Distribution Width 13.6 % (13.2-15.2); White Blood Count 15.6 K/mm3 (4.5-11.0)
[2016-11-03 06:10] LABS: Anion Gap 18 mmol/L; BUN/Creatinine Ratio 24.28; Blood Urea Nitrogen 17 mg/dL (9-20); Calcium 8.6 mg/dL (8.4-10.2); Carbon Dioxide 25 mmol/L (22-30); Chloride 105.3 mmol/L (98-107); Glucose 107 mg/dL (75-100); Potassium 3.9 mmol/L (3.6-5.0); Sodium 144 mmol/L (137-145)
--- NOTE | 2016-11-03 09:48 | Discharge Summary ---
Providers - Providers Date of Admission: 11/01/16 09:36 Date of discharge: 11/03/16 Attending physician: KI MOSES MD 11/01/16 Consult to Cardiac Rehabilitation [CONS] Routine Reason For Exam: Phase I 11/01/16 09:40 Consult to Physician [CONS] Routine Consulting Provider: JESSIAC GREY Reason For Exam: chest pain Place consult to:: yes Notified:: yes Primary care physician: CTC OPERATOR Hospitalization Reason for admission: COPD exacerbation, acute diastolic CHF, infected gum/ abscess Condition: Stable Pertinent studies: Echo diastolic dysfunction Hospital course: Patient is a 61 years-old gentleman with a history of COPD and hypertension who presents with complaining of chest pain. The pain was located over bilateral anterior chest wall. radiated up to his back. His discomfort was accompanied by shortness of breath, but associated symptoms no sweating, nausea, or vomiting. The chest pain was aggravated by coughing and taking deep breaths.He says that coughing and breathing makes it worst and hot temperatures will help relieve those symptoms. The pain has been a constant pain since it started yesterday evening. At first, he felt a sharp pain that was 7/10 but eventually it became more dull pain and is currently 5/10. He has no allergies, seasonal or otherwise , other than hx of COPD. He has about a 32 pack year history with tobacco and stopped smoking five years ago. Patient also stated that for the past 3 weeks he is on clindamycin and Augmentin for infected tooth. Patient was admitted to the floor for COPD exacerbation and used to treated with IV antibiotics, Solu-Medrol, nebulizer treatment. It caused in and showed diastolic dysfunction. Patient still has abscess from the infected tooth. Patient was discharged with by mouth Flagyl and amoxicillin. Patient is advised to follow-up with his dentist. Patient medications were refilled at the time of discharge. Patient's questions and concerns were answered at the bedside. Patient is hemodynamically stable at the time of discharge. Disposition: -01 TO HOME OR SELFCARE Time spent for discharge: 31 minutes - Discharge Diagnoses (1) Infected tooth Status: Acute (2) Acute diastolic (congestive) heart failure Status: Acute (3) COPD exacerbation Status: Acute (4) Chest pain Status: Acute Qualifiers: Chest pain type: C Ischemic chest pain type: I Core Measure Documentation - Palliative Care Palliative Care/ Comfort Measures: Not Applicable - Core Measures Any of the following diagnoses?: heart failure - Heart Failure Discharge Requirements JOLIE/ARB for LVSD if EF <40%: Not Applicable Beta shari at discharge: Yes Exam - Physical Exam Narrative exam: Not in cardiopulmonary distress. The patient appeared well nourished and normally developed. Vital signs as documented. Head exam is unremarkable. No scleral icterus . Neck is without jugular venous distension, thyromegaly, or carotid bruits. Lungs are clear to auscultation. Cardiac exam reveals regular rate and Rhythm. First and second heart sounds normal. No murmurs, rubs or gallops. Abdominal exam reveals normal bowel sounds, no masses, no organomegaly and no aortic enlargement. Extremities are nonedematous and both femoral and pedal pulses are normal. GROUP FITNESS MANAGER: Alert and oriented 3. No focal weakness. - Constitutional Vitals: Temp Pulse Resp BP Pulse Ox 98.0 F 82 18 122/62 97 11/03/16 04:00 11/03/16 04:00 11/03/16 04:00 11/03/16 04:00 11/03/16 04:00 Plan Activity: no restrictions Weight Bearing Status: Full Weight Bearing Diet: low cholesterol, low salt Follow up with: PRIMARY CARE, [Primary Care Provider] - 7 Days Prescriptions: ALBUTEROL Inhaler [ProAir HFA Inhaler] 1 puff IH Q4H PRN #1 can PRN Reason: Dyspnea Amoxicillin 500 mg PO TID #30 capsule Metoprolol [Lopressor TAB] 25 mg PO BID #60 tablet metroNIDAZOLE [Flagyl TAB] 500 mg PO Q8HR #30 tablet Prednisone [predniSONE 5 mg (6-Day Pack, 21 Tabs)] 5 mg PO .TAPER #1 tab.ds.pk
--- NOTE | 2016-11-03 09:53 | Progress Note ---
Assessment and Plan Shortness of breath - resolved intermediate probability exam for PE d/t underlying COPD no acute cardiopulmonary process on chest x-ray. Normal LVEF Hx of COPD Recent teeth extractions and tooth ache Plan: In the absence of chest pain or angina, no stress test is indicated at the current time. No further cardiac work-up Subjective Date of service: 11/03/16 Principal diagnosis: Tooth ache Interval history: Patient denies chest pain or shortness of breath He complains of toothache Objective Vital Signs Temp Pulse Resp BP Pulse Ox 11/03/16 04:00 98.0 F 82 18 122/62 97 11/03/16 00:51 98.3 F 85 18 134/63 97 11/02/16 22:00 80 11/02/16 20:00 98.1 F 95 H 18 140/63 94 11/02/16 18:16 97.2 F L 95 H 18 155/88 11/02/16 14:00 80 11/02/16 12:00 94 - Physical Examination General: No Apparent Distress Cardiac: Positive: Reg Rate and Rhythm Lungs: Positive: Normal Exam Neuro: Positive: Grossly Intact - Labs and Meds CBC 11/03/16 Range/Units 05:02 WBC 15.6 H (4.5-11.0) K/mm3 RBC 5.17 H (3.65-5.03) M/mm3 Hgb 14.7 (11.8-15.2) gm/dl Hct 44.0 (35.5-45.6) % Plt Count 248 (140-440) K/mm3 Lymph # 3.9 (1.2-5.4) K/mm3 [place] # 1.5 H (0.0-0.8) K/mm3 Eos # 0.0 (0.0-0.4) K/mm3 Baso # 0.0 (0.0-0.1) K/mm3 Comprehensive Metabolic Panel 11/03/16 Range/Units 05:02 Sodium 144 (137-145) mmol/L Potassium 3.9 (3.6-5.0) mmol/L Chloride 105.3 (98-107) mmol/L Carbon Dioxide 25 (22-30) mmol/L BUN 17 (9-20) mg/dL Creatinine 0.7 L (0.8-1.5) mg/dL Glucose 107 H (75-100) mg/dL Calcium 8.6 (8.4-10.2) mg/dL
[2016-11-03] MEDS: ASPIRIN PO SCH (10:00)
[2016-11-03] MEDS ORDERED: DELTASONE PO SCH (10:00)
[2016-11-03 10:45] VITALS: BP 168/79
== END 2016-11-03 12:25 | disposition home or self-care (01) | DRG 190 ==
LOC: ED 21:02 → 4A 11-01 09:36
PROVIDERS: ADMIT Internal Medicine; ATTEND Internal Medicine
DX: J44.1 Chronic obstructive pulmonary disease with (acute) exacerbation (principal); I50.31 Acute diastolic (congestive) heart failure; J18.9 Pneumonia, unspecified organism; K04.7 Periapical abscess without sinus; R07.9 Chest pain, unspecified; Z88.1 Allergy status to other antibiotic agents; Z82.49 Family history of ischemic heart disease and other diseases of the circulatory system; Z87.891 Personal history of nicotine dependence
CPT/HCPCS: 36415; 71020; 71275; 78582; 80048; 82550; 82553; 84484; 85025; 85379; 85610; 90732; 93005; 93010; 93306; A9540; A9558; J1650; J1956; J2920; J7042; J7512; Q9967